=== PATIENT | male | born 1945 | race Caucasian/White ===

== ENCOUNTER 2016-05-16 12:15 | Inpatient (IN) | payer OTHER ==
--- NOTE | ~2016-05-16 | DS ---
Unit #: [id number] #: [id number] Patient: PEREZ FREEDMAN SR [id number] [address] [address] [id number] MR#: [id number] NAME: PEREZ FREEDMAN SR ROOM: 339 Age: 71 Sex: M Admission Date: 05/16/2016 : 1945 Discharge Date: 05/20/2016 Attending Physician: Lebron Harrell M.D. Primary Care Physician: Aneudy Garcia M.D. DISCHARGE SUMMARY REASON FOR ADMISSION Right lower lobe pneumonia and COPD exacerbation. HISTORY OF PRESENT ILLNESS This is a 71-year-old gentleman with history of COPD, who presents to the office complaining of increasing shortness of breath, having green sputum, progressive dyspnea, feeling poorly for approximately a week to week and a half. The patient stated that he felt better after 3 days of illness and in the past 3 to 4 days, the patient has had increasing shortness of breath, increasing complaints of generalized weakness, increasing fatigue. No significant fevers or chills. The cough productive of green sputum has not changed very significantly. REVIEW OF SYSTEMS Otherwise, the patient is not having a lot of symptoms. The patient was ready for discharge on the 05/20/2016. He had been switched to oral medication. He had received a course of Tamiflu over the weekend. Therefore, the patient will be discharged on Tamiflu to home. He is to follow up back up in the office within 2 weeks and hopefully there will be no worsening of symptoms. DISCHARGE MEDICATIONS Include prednisone 40 mg x3 days, 30 mg x3 days, 20 mg x3 days, 10 mg x3 days; tiotropium 18 mcg inhaled daily; Tamiflu 75 mg p.o. b.i.d. x2 days, phenobarbital 64.8 mg p.o. b.i.d., Breo Ellipta one puff daily, Omnicef 300 mg p.o. b.i.d. for 7 days, pravastatin 160 mg p.o. at bedtime, Dilantin 300 mg at bedtime, aspirin 81 mg daily, and oxygen at 3 L a minute. ACTIVITY As tolerated. DIET Regular. FOLLOWUP The patient should follow up with Jodi Means in the office in approximately 2 weeks. Thank you very much. Please page me at [phone] if you have any questions. Dictated by... Unit #: [id number] #: [id number] Patient: PEREZ FREEDMAN SR, M.D. BM/emerson TD: 05/21/2016 03:52 JOB #: [id number] DISCHARGE SUMMARY Page 1 of 1 X Blake Diggs MD X DISCHARGE SUMMARY
--- NOTE | ~2016-05-16 | CT57 ---
[facility] A Service of [facility] & [facility] RADIOLOGY TEXT RESULTS PATIENT: PEREZ FREEDMAN SR LOCATION: [facility] 339-01 : 44 UNIT #: [id number] AGE: [address]: Lebron Harrell MD SEX: M ORDER DR: [id number] [facility] [address]. [place], [place] [address] [id number] I MR#: [id number] Acc #: [id number] NAME: PEREZ FREEDMAN : 1945 SEX: M STUDY DATE/TIME: 05/16/2016 16:25 UNIT: [address] ROOM: [facility] STUDY DESCRIPTION: CT Chest Wo Cont Attending Physician: Lebron Harrell M.D. Ordering Physician: Lebron Harrell M.D. Primary Care Physician: Aneudy Garcia M.D. MEDICAL IMAGING REPORT This report is preliminary unless electronic signature is present EXAM CT chest without contrast HISTORY 71-year-old male with shortness of air, dyspnea. History of COPD, symptoms x1 week. COMPARISON CT chest, 06/19/[address] exam was performed with one or more of the following radiation dose reduction techniques: automatic control, adjustment of mA and/or kV according to patient size, and iterative reconstruction. FINDINGS Thin section axial images performed through the chest utilizing a high resolution protocol. Examination demonstrates extensive airspace disease consolidation right lower lobe which is new from May 2014 and may represent acute airspace disease and pneumonia. Recommend clinical and imaging followup to resolution. There is a small amount of left lower lobe atelectasis and/or infiltrate in the left posterior costophrenic sulcus. This is superimposed on background moderate to severe centrilobular emphysema. There is tracheobronchiomegaly with a small amount of mucus in the right trachea compatible with chronic bronchitis. Coronary and aortic atherosclerotic changes noted. Heart size within normal limits. No significant pericardial effusion. Shotty mediastinal lymph nodes nonspecific but may be related to chronic lung disease. Visualized upper abdomen remarkable for bilateral adrenal mass lesions left greater than right. These appear stable from the CT of May 2014 and may represent adrenal hyperplasia or benign adrenal lesions. Osseous structures thoracic inlet unremarkable. STS. [facility] A Service of [facility] & [facility] RADIOLOGY TEXT RESULTS PATIENT: PEREZ FREEDMAN SR LOCATION: [facility] 339-01 : [birth year] UNIT #: [id number] AGE: [address]: Lebron Harrell MD SEX: M ORDER DR: IMPRESSION 1. Extensive airspace disease. Posterior aspect right lower lobe as well as a small amount of airspace disease consolidation left lower lobe. These both represent new findings or progressive findings from the patient's study of May 2014 and are concerning for acute airspace disease and pneumonia. Recommend clinical and imaging followup to resolution. 2. Moderate to severe background centrilobular emphysema. 3. Stable bilateral adrenal lesions probably represent either adrenal hyperplasia or benign adenomas. Dictated by... Leah Landeros M.D. THIS IS AN ELECTRONICALLY VERIFIED REPORT Leah Landeros M.D. at 05/16/2016 10:38 PM EV/samanta TD: 05/16/2016 19:24 JOB #: [id number] MEDICAL IMAGING REPORT Page 1 of 1 COPY
--- NOTE | ~2016-05-16 | HP ---
Unit #: [id number] #: [id number] Patient: PEREZ FREEDMAN SR [id number] [address] [place], [place] [address] [id number] I MR#: [id number] NAME: PEREZ FREEDMAN SR ROOM: 339 Age: 71 Sex: M Admission Date: 05/16/2016 : 1945 Attending Physician: Lebron Harrell M.D. Primary Care Physician: Aneudy Garcia M.D. HISTORY AND PHYSICAL HISTORY OF PRESENT ILLNESS Mr. Freedman is a 71-year-old male well known to us with COPD, who presents to the office complaining of increasing shortness of air. He actually had some people that know him that I saw in the office who had said he was looking significantly worse than his usual. He complains of a cough with some green sputum. He started out feeling poorly may be a week to a week and a half ago, felt better for three days, then had some increased shortness of air, increased cough, and then since then has just felt progressively worse. He complains of generalized weakness. He did smoke but he quit 18 years ago. PAST MEDICAL HISTORY 1. COPD. 2. History of coronary artery disease with stents. 3. Seizure disorder. 4. History of hyponatremia. 5. History of hypertension. MEDICATIONS ON ADMISSION 1. Spiriva one capsule inhaled daily. 2. Pravachol 160 mg p.o. daily. 3. Aspirin 81 mg p.o. daily. 4. Dilantin 300 mg p.o. at bedtime. 5. Phenobarbital three daily. 6. Breo 200/25 daily. 7. He also has albuterol mini nebs which he uses q.i.d. p.r.n. ALLERGIES Codeine. SOCIAL HISTORY He did smoke but he quit about 18 years ago. FAMILY HISTORY Significant for lung cancer, I believe in two siblings or one sibling and a father. SYSTEMS REVIEW He has no nausea or vomiting but he does have decreased appetite. He denies any leg swelling. Denies any skin issues. He complains of fatigue. He has a little bit of sinus issues. He denies choking on his food. All other systems are negative except as mentioned. PHYSICAL EXAMINATION Unit #: [id number] #: [id number] Patient: PEREZ FREEDMAN SR GENERAL: He presents as an older male in no acute distress. VITAL SIGNS: Temperature in my office was 101.5. Respiratory rate in the office was 20, heart rate 119, blood pressure 128/60. Repeat temperature was done here in the hospital and it was 98.1 with a heart rate of 109. NECK: Without adenopathy. LUNGS: Evaluation of his lungs reveals that his breathing may be mildly labored. He had a little bit of inspiratory and expiratory wheezes and rhonchi bilaterally, more posteriorly than anteriorly. HEART: Mildly tachycardic. ABDOMEN: Soft, nontender. Bowel sounds present. EXTREMITIES: Without edema. NEUROLOGIC: He is awake and alert. HEENT: (1) conjunctivae may be a little bit pale in appearance. DIAGNOSTIC STUDIES IMAGING: His x-ray was done in our office and I compared it to a previous x-ray somewhere between February and last November. He has increased interstitial markings in general which really has not changed a bit. No obvious focal changes since the last x-ray. He does have a paucity of lung markings in the lower lobes possibly consistent with some hyperinflation. In my office, his saturation was low at 89% on his normal 3 L nasal cannula. IMPRESSION 1. Acute on chronic hypoxemic respiratory failure, possibly even hypercapnic. 2. Acute febrile illness which is at least a bronchitis and cannot rule out a pneumonia, cannot even rule out a flu. 3. Emphysema. 4. Seizure disorder. PLAN I will start him empirically on IV antibiotics aimed more at a pneumonia. We will need to rule out the flu since it is an epidemic right now. I will give him IV Solu-Medrol. Please note that we now have available admit labs: BUN was 15, creatinine 0.3, sodium 132, bicarbonate was only 26. His white blood cell count on admission was 16.7, H and H11.6 and 35.8, platelets 264,000. I will check a lactic acid because he has basically a couple systemic inflammatory response syndrome criteria that is fever, white blood cell count elevated, and he does have chronic obstructive pulmonary disease and tachycardia. Dictated by Lis Royal/genaro TD: 05/16/2016 15:35 JOB #: [id number] Unit #: [id number] #: [id number] Patient: PEREZ FREEDAMN SR HISTORY AND PHYSICAL Page 1 of 1 X Lebron Harrell MD X HISTORY AND PHYSICAL
[~2016-05-16 12:15] MED LIST: ACETAMINOPHEN PO; ALBUTEROL17 GM NEB; ALPRAZOLAM; ALPRAZOLAM PO; ASPIRIN PO; ASPIRIN81 M2 PO; CARDIZEM CD PO; CARTIA XT240 M1 PO; CARTIA XT240 MG PO; CRESTOR PO; DILANTIN KAPSE100 MG PO; DILANTIN PO; DILANTIN50 MG PO; DOCUSATE SODIU100 MG PO; FLOVENT HFA INH; FLOVENT HFA12 GM INH; FORADIL12 MCG INH; FORADIL12 MCG NEB; LEVALBUTER1.25 MG/1 IH; LEVAQUIN PO; PHENOBARB PO; PHENOBARBITAL32.4 MG PO; PRAVACHOL80 MG PO; PRAVASTATIN SOD40 MG PO; PREDNISONE PO; QVAR7.3 G1 IH; SPIRIVA18 MCG INH; THEO-24200 MG PO; THEOPHYLLIN PO; VICODIN PO
[2016-05-16 14:16] LABS: HEMATOCRIT 35.8 % (38.0-50.0); HEMOGLOBIN 11.6 gm/dL (13.0-16.0); MEAN CELL VOLUME 93.8 FL (83-96); MEAN CORPUSCULAR HEMOGLOBIN 30.3 PG (28-34); MEAN CORPUSCULAR HGB CONC 32.2 g/dL (30-36); MEAN PLATELET VOLUME 8.1 FL (6.5-11.5); RED BLOOD COUNT 3.82 X10e (3.90-5.60); RED CELL DISTRIBUTION WIDTH 13.5 % (11.0-15.5); WHITE BLOOD COUNT 16.7 X10e3 (4.0-10.5)
[2016-05-16 14:42] LABS: ALBUMIN SERUM 3.7 g/dL (3.5-5.0); BILIRUBIN,TOTAL 1.1 mg/dL (0.2-2.0); CALCIUM SERUM 8.6 mg/dL (8.4-10.2); CREATININE SERUM 0.3 mg/dL (0.6-1.4); GLOM FILT RATE Estimated 133.6 mL/min (>60); POTASSIUM 3.6 mmol/L (3.5-5.1); PROTEIN TOTAL SERUM 7.5 g/dL (6.0-8.3)
[2016-05-16] MEDS ORDERED: BREO ELLIPTA 21 EACH (15:06)
[2016-05-18 08:07] LABS: BASOPHIL% 0.1 % (0-2.5); EOSINOPHIL% 0.2 % (0.0-7.0); HEMATOCRIT 33.8 % (38.0-50.0); LYMPHOCYTE# 1.1 X10e3 (1.0-3.5); LYMPHOCYTE% 9.2 % (17.0-45.0); MEAN CORPUSCULAR HEMOGLOBIN 30.6 PG (28-34); MEAN CORPUSCULAR HGB CONC 32.5 g/dL (30-36); MEAN PLATELET VOLUME 8.1 FL (6.5-11.5); MONOCYTE# 0.7 X10e3 (0-1.0); MONOCYTE% 5.7 % (3.0-12.0); NEUTROPHIL# 10.3 X10e3 (1.5-7.1); NEUTROPHIL% 84.8 % (40-75); PLATELET COUNT 288 X10e3 (140-420); RED CELL DISTRIBUTION WIDTH 13.8 % (11.0-15.5); WHITE BLOOD COUNT 12.1 X10e3 (4.0-10.5)
[2016-05-18 08:08] LABS: DIFF IND NO
[2016-05-18 08:57] LABS: ALBUMIN SERUM 2.9 g/dL (3.5-5.0); BILIRUBIN,TOTAL 0.5 mg/dL (0.2-2.0); BUN/CREATININE RATIO 46.66; CALCIUM SERUM 8.4 mg/dL (8.4-10.2); CREATININE SERUM 0.3 mg/dL (0.6-1.4); GLOM FILT RATE Estimated 133.6 mL/min (>60); PROTEIN TOTAL SERUM 6.1 g/dL (6.0-8.3)
[2016-05-18 09:32] LABS: LEGIONELLA AG URINE NEG (NEG)
[2016-05-19 10:12] LABS: HEMATOCRIT 35.2 % (38.0-50.0); HEMOGLOBIN 11.4 gm/dL (13.0-16.0); MEAN CELL VOLUME 93.9 FL (83-96); MEAN CORPUSCULAR HEMOGLOBIN 30.4 PG (28-34); MEAN CORPUSCULAR HGB CONC 32.4 g/dL (30-36); MEAN PLATELET VOLUME 7.8 FL (6.5-11.5); RED BLOOD COUNT 3.75 X10e (3.90-5.60); WHITE BLOOD COUNT 9.2 X10e3 (4.0-10.5)
[2016-05-19 10:41] LABS: CALCIUM SERUM 8.6 mg/dL (8.4-10.2); CREATININE SERUM 0.4 mg/dL (0.6-1.4); GLOM FILT RATE Estimated 118.7 mL/min (>60); POTASSIUM 3.9 mmol/L (3.5-5.1)
[2016-05-20] MEDS ORDERED: PREDNISONE PO (16:37)
[2016-05-20] MEDS ORDERED: OMNICEF300 MG PO (16:38)
[2016-05-20] MEDS ORDERED: TAMIFLU75 M1 PO (16:38)
[2016-05-20] MEDS ORDERED: OXYGEN INH (16:38)
== END 2016-05-20 17:30 | disposition home or self-care (01) | DRG 189 ==
LOC: C3A PCU 12:15
PROVIDERS: Internal Medicine Pulmonary Disease
DX: J96.21 Acute and chronic respiratory failure with hypoxia (principal); J18.9 Pneumonia, unspecified organism; J44.1 Chronic obstructive pulmonary disease with (acute) exacerbation; J44.0 Chronic obstructive pulmonary disease with (acute) lower respiratory infection; J96.22 Acute and chronic respiratory failure with hypercapnia; Z87.891 Personal history of nicotine dependence; I25.10 Atherosclerotic heart disease of native coronary artery without angina pectoris; Z95.5 Presence of coronary angioplasty implant and graft; I10 Essential (primary) hypertension; Z79.82 Long term (current) use of aspirin; Z88.5 Allergy status to narcotic agent; Z80.1 Family history of malignant neoplasm of trachea, bronchus and lung
CPT/HCPCS: 71250; 80048; 80053; 80202; 83605; 85025; 85027; 87040; 87070; 87449; 87633; 87899; 94640; 94760; J0692; J1650; J2920; J2930; J3370